=== PATIENT | female | born 1970 | race Asian ===

== ENCOUNTER 2021-06-22 10:03 | Outpatient (REF) | payer OTHER, SELFPAY ==
[2021-06-22 13:56] LABS: Creatinine Urine 262.95 mg/dL
[2021-06-22 13:58] LABS: Alanine Aminotransferase 16 U/L (0-31); Albumin Level 4.5 g/dL (3.5-5.0); Alkaline Phosphatase 58 U/L (39-117); Anion Gap 15 (12-20); Aspartate Amino Transferase 18 U/L (5-31); Bilirubin Total 0.7 mg/dL (0.0-1.0); Blood Urea Nitrogen 11 mg/dL (9-16); Calcium 9.9 mg/dL (8.4-10.2); Carbon Dioxide 24 mmol/L (22-29); Chloride 104 mmol/L (96-108); Cholesterol 172 mg/dL; Estimated Glomerular Filt Rate > 60; Glucose Fasting 146 mg/dL (60-99); HDL Cholesterol 37 mg/dL; LDL Cholesterol Calculated 114 mg/dl; Potassium 4.1 mmol/L (3.3-5.1); Sodium 139 mmol/L (135-145); Total Protein 7.5 g/dL (6.5-8.0); Triglycerides 109 mg/dL
[2021-06-22 14:02] LABS: Estimated Average Glucose 206 mg/dL; Hemoglobin A1c % 8.8 %
[2021-06-22 14:20] LABS: Vitamin D 25-OH Total 34.6 ng/mL (>30)
== END 2021-06-22 10:04 | disposition home or self-care (01) ==
LOC: HO.HMGCLDS 10:03
PROVIDERS: PCP Internal Medicine; Visit Provider Internal Medicine
DX: Z00.01 Encounter for general adult medical examination with abnormal findings (principal); E78.5 Hyperlipidemia, unspecified; I10 Essential (primary) hypertension; E11.9 Type 2 diabetes mellitus without complications; Z78.0 Asymptomatic menopausal state; Z79.4 Long term (current) use of insulin
CPT/HCPCS: 36415; 80053; 80061; 82043; 82306; 83036

== ENCOUNTER → 2021-08-14 12:44 | Outpatient (BNVA) | payer OTHER, SELFPAY | PROVIDERS: PCP Internal Medicine; Referring Provider Internal Medicine; Visit Provider Nurse Practitioner | DX: Z12.11 Encounter for screening for malignant neoplasm of colon (principal) | CPT/HCPCS: 99202 ==

== ENCOUNTER 2022-07-21 06:02 | Outpatient (REF) | payer BC, SELFPAY ==
[2022-07-21 11:48] LABS: Estimated Average Glucose 329 mg/dL; Hemoglobin A1c % 13.1 %
[2022-07-21 12:41] LABS: Alanine Aminotransferase 22 U/L (0-31); Anion Gap 17 (12-20); Aspartate Amino Transferase 17 U/L (5-31); Blood Urea Nitrogen 11 mg/dL (9-16); Calcium 9.5 mg/dL (8.4-10.2); Carbon Dioxide 22 mmol/L (22-29); Chloride 102 mmol/L (96-108); Cholesterol 173 mg/dL; Estimated Glomerular Filt Rate > 60; Glucose Fasting 299 mg/dL (60-99); HDL Cholesterol 53 mg/dL; LDL Cholesterol Calculated 105 mg/dl; Potassium 4.2 mmol/L (3.3-5.1); Sodium 137 mmol/L (135-145); Triglycerides 76 mg/dL
[2022-07-21 12:48] LABS: Creatinine Urine 89.33 mg/dL; Microalbum/Creatinine Ratio Ur 8.9 ug/mg cr
== END 2022-07-21 06:03 | disposition home or self-care (01) ==
LOC: HO.HMGCLDS 06:02
PROVIDERS: PCP Internal Medicine; Visit Provider Internal Medicine
DX: E78.5 Hyperlipidemia, unspecified (principal); E11.9 Type 2 diabetes mellitus without complications; I10 Essential (primary) hypertension; Z79.4 Long term (current) use of insulin
CPT/HCPCS: 36415; 80048; 80061; 82043; 83036; 84450; 84460

== ENCOUNTER 2022-12-13 10:02 | Outpatient (REF) | payer BC, SELFPAY ==
[2022-12-13 11:31] LABS: Estimated Average Glucose 171 mg/dL; Hemoglobin A1c % 7.6 %
[2022-12-13 12:23] LABS: Creatinine Urine 73.95 mg/dL; Microalbum/Creatinine Ratio Ur 21.6 ug/mg cr
[2022-12-13 12:43] LABS: Alanine Aminotransferase 19 U/L (0-31); Anion Gap 14 (12-20); Aspartate Amino Transferase 21 U/L (5-31); Blood Urea Nitrogen 15 mg/dL (9-16); Calcium 9.7 mg/dL (8.4-10.2); Carbon Dioxide 26 mmol/L (22-29); Chloride 105 mmol/L (96-108); Cholesterol 161 mg/dL; Estimated Glomerular Filt Rate > 60; Glucose Fasting 96 mg/dL (60-99); HDL Cholesterol 48 mg/dL; LDL Cholesterol Calculated 100 mg/dl; Potassium 5.1 mmol/L (3.3-5.1); Sodium 140 mmol/L (135-145); Triglycerides 69 mg/dL
[2022-12-13 12:45] LABS: Vitamin D 25-OH Total 32.7 ng/mL (>30)
== END 2022-12-13 10:03 | disposition home or self-care (01) ==
LOC: HO.HMGCLDS 10:02
PROVIDERS: PCP Internal Medicine; Visit Provider Internal Medicine
DX: E11.65 Type 2 diabetes mellitus with hyperglycemia (principal); E78.5 Hyperlipidemia, unspecified; N95.9 Unspecified menopausal and perimenopausal disorder; I10 Essential (primary) hypertension
CPT/HCPCS: 36415; 80048; 80061; 82043; 82306; 83036; 84450; 84460

== ENCOUNTER 2023-04-09 15:50 | Outpatient (AMB) | payer BC, SELFPAY ==
--- NOTE | 2023-04-09 16:24 | MHC.PC.OV ---
Vital Signs 04/09/23 16:26 Height 4 ft 11 in Weight 133 lb 8 oz BMI 27.0 BP 130/62 Blood Pressure Location Lt brachial Position Sitting Pulse 93 Pulse Source Pulse Oximeter Pulse Oximetry (%) 98 Oxygen Delivery Method Room Air Intake Visit Reasons: Annual PE/OK By Dr. Thomas Allergies No Known Allergies Allergy (Verified 04/09/23 16:40) Medication List - Last Reconciled 04/09/23 by Beatriz Thomas MD amlodipine 5 mg PO DAILY atorvastatin 20 mg PO DAILY blood sugar diagnostic (FreeStyle Lite Strips) Check fasting blood sugar twice a day before meals blood-glucose meter (FreeStyle Lite Meter kit) Check fasting glucose twice a day before meals empagliflozin (Jardiance) 25 mg PO QAM insulin glargine (Lantus Solostar U-100 Insulin) 24 units subcut QPM lisinopril 20 mg PO DAILY metformin 1,000 mg PO BID pen needle, diabetic Inject insulin once a day Tobacco use date assessed: 04/09/23 Dental Screening Dental Screen Date: 04/09/23 Did you have a dental visit in the last 12 months?: Yes Did you have a dental problem in the last 6 months where you did not have access to dental care?: No Was dental information given to patient?: No HPI HPI Comments History of Present Illness Details 52-year-old lady with diabetes mellitus currently on Jardiance 25 mg daily, metformin 1000 mg twice a day and Lantus 24 units at bedtime, has dyslipidemia on atorvastatin 20 mg daily and takes lisinopril 10 mg and amlodipine 5 mg daily for her hypertension, here today for physical exam. She has been feeling well except for intermittent episodes of right shoulder pain for which he takes Aleve tablets which has been helping. She is due for COVID vaccine and shingles vaccine is up-to-date with her pneumococcal vaccine Tdap and gets yearly flu shots. She states that she had as screening colonoscopy done January 2023 at [facility] with Dr. Bruno, findings were normal and to repeat again another colonoscopy in 10 years. She goes to [facility] for screening mammogram which she just did December this year, normal findings per patient. Hemoglobin A1c today is at 9.1% up from 7.6 in December 2022. Patient states that she has not been very compliant with her diet nor has she been getting Rx has but has been taking her medications as directed. Complains of excessive daytime sleepiness, has been told that she snores a lot, has difficulty initiating and maintaining sleep. [facility] Medical History (Updated 04/09/23 @ 17:01 by Beatriz Thomas MD) Diabetes mellitus with hyperglycemia, with long-term current use of insulin Dyslipidemia Essential hypertension Excessive daytime sleepiness Loud snoring Obesity (BMI 30.0-34.9) Surgical History Hx of cataract surgery Family History Father HTN (hypertension) Social History Housing: House Patient Tobacco Use Status: Never used Tobacco e-Cigarette/Vaping Use: Never Used Second Hand Smoke Exposure: No service: No Current occupational status: employed Cognitive needs: No Hearing needs: No Vision needs: No Questionnaire Thrive Questionnaire Date Thrive assessed: 10/02/22 AUDIT C Alcohol Use Questionnaire (AUDIT-C) 1. How often do you have a drink containing alcohol?: Never 3. How often do you have six or more drinks on one occasion?: Never Total Score: 0 Score Reviewed/Action Taken: Yes MARCK-7 AMB Questionnaire MARCK-7 Date MARCK - 7 assessed: 10/02/22 Source: Developed by Drs. Derick Ordaz, Carolynn Miller, Edwin Danielson and colleagues, with an educational jose manuel from [employer]. Review of Systems Const Reports as per HPI, Denies body aches, Denies fever(s), Denies frequent falls, Denies headache(s), Denies night sweats, Denies poor appetite, Denies weakness and Reports weight gain Eyes Details: Up-to-date with her diabetes retinopathy screening, goes to [facility] with negative retinopathy seen Denies change in vision ENT Reports Normal hearing present, Denies dysphagia, Denies vertigo, Denies headache(s), Denies hearing loss, Denies mouth pain and Denies tongue swelling Card Denies chest pain, Denies irregular heart rhythm, Denies lightheadedness and Denies dyspnea Resp Denies cough, Denies dyspnea and Denies wheezing GI Denies abdominal pain, Denies melena, Denies bloating, Denies dysphagia, Denies heartburn and Denies nausea Denies difficulty voiding, Reports nocturia, Denies dysuria, Denies urinary incontinence and Denies vaginal discharge Musc Details: Complaining of intermittent pain in right posterior shoulder, no history of any injury, takes an Aleve which has been helping Denies abnormal gait and Denies numbness Skin/Breast Denies breast pain, Denies breast mass, Denies pruritus, Denies lesions and Denies rash Neuro Reports Normal hearing present, Denies Abnormal speech present, Denies abnormal gait, Denies vertigo, Denies frequent falls, Denies headache(s), Denies focal weakness, Denies numbness, Denies Sensory deficit (Neuro) and Denies weakness Psych Reports no additional complaints Endo Denies polyphagia, Denies polydipsia and Denies polyuria Caio/Lymph Reports no additional complaints Aller/Immun Denies tongue swelling and Denies wheezing Physical exam (Primary Care) Vital Signs: Last Vital Signs Pulse 93 04/09/23 16:26 BP 142/62 H 04/09/23 16:26 Pulse Ox 98 04/09/23 16:26 Oxygen Delivery Method Room Air 04/09/23 16:26 BMI result Body Mass Index 27.0 BMI Assessment/Plan discussion: High BMI High, discussed plan: lifestyle, weight reduction, dietary and physical activity Tobacco/Smoking Status: Tobacco use Status Tobacco use date assessed 04/09/23 04/09/23 16:29 Patient Tobacco Use Status Never used Tobacco 04/09/23 16:26 e-Cigarette/Vaping Use Never Used 04/09/23 16:26 Thrive Assessment: Date of Thrive Assessment Date Thrive assessed 10/02/22 04/09/23 16:26 Const General: cooperative, no acute distress and alert Orientation/consciousness: patient oriented x3 Limitations: no limitations HENMT Head: Yes normocephalic and Yes atraumatic Ears: external ears normal General nose exam: Normal external nose present and No nasal discharge present Face and sinus: Yes face symmetric Mouth: Normal oral and palatal mucosa present, tongue normal, oropharynx normal and moist mucous membranes Eyes Conjunctivae: conjunctivae normal Sclerae: sclerae normal Pupils: Equal, round and reactive pupils present EOM: EOMs intact bilaterally Neck Neck: Yes full ROM and Yes no lymphadenopathy Thyroid: Thyroid normal Carotids: normal carotid upstroke Lymphatic: no lymphadenopathy noted Chest Breast/axilla palpation: normal palpation of the breasts Resp Effort & Inspection: normal respiratory effort and able to speak in complete sentences Auscultation: clear to auscultation bilaterally Cardio Rate: regular rate Rhythm: regular rhythm Heart sounds: S1 normal heart sound present and S2 normal heart sound present GI Palpation (GI): Soft to palpation Auscultation: normal bowel sounds General: Yes no CVA tenderness and Yes deferred Back/Spine/Pelvis Back: no CVA tenderness and No back tenderness Skin General skin exam: no rashes or lesions noted Neuro General: patient oriented x3, gait normal, moves all extremities, no focal motor deficits and CN's II-XI intact bilaterally Cranial nerves: Yes Equal, round and reactive pupils present and Yes Normal hearing present Cognition (Neuro): normal cognition Speech: No Abnormal speech present Gait exam (Neuro): Normal gait present Motor exam (neuro): 5/5 motor strength present throughout Sensory Exam: No Sensory deficit (Neuro) Extrem General: Yes normal to inspection, Yes full ROM, Yes no pedal edema and Yes normal gait Psych Appearance: grossly normal and well kempt Mental Status: mental status grossly normal Speech and movement: Normal speech and movement present Affect: normal affect Attitude: cooperative Thought process: Normal thought process present Thought content: Normal thought content present Results AMB Hemoglobin A1c AMB Hemoglobin A1c 9.1 % Last Edit by Davina Cochran CMA on 04/09/23 16:53 Assessment and Plan Assessment & Plan (1) Diabetes mellitus with hyperglycemia, with long-term current use of insulin: Code(s): E11.65 - Type 2 diabetes mellitus with hyperglycemia; Z79.4 - medical terminologist (current) use of insulin Plan: Recent lab results reviewed with patient, with sugar and hemoglobin A1c not at goal to 30 units subQ at bedtime. dosing metformin Jardiance at same dose, increase Lantus continue continue to check fasting blood sugar at home, maintain log and bring to next appointment for review. Reinforced diabetic diet and regular exercise with patient. Counseled regarding importance of yearly diabetes retinopathy screening currently up-to-date. Patient advised to inspect feet daily, for any signs of injury, callus or infection. Compliance with diet and regular exercise again stressed. Blood pressure goal is less than 130/80, goal LDL is less than 100 and goal hemoglobin A1c is less than 7% follow-up appointment made in---months, after fasting labs done. (2) Essential hypertension: Code(s): I10 - Essential (primary) hypertension Plan: Blood pressure at goal of less than 130/80. Continue with current medication. Reinforced importance of following a low sodium diet, getting regular exercise, and lowering stress levels. (3) Dyslipidemia: Code(s): E78.5 - Hyperlipidemia, unspecified Plan: Fasting lipid panel ordered today, continue with atorvastatin 20 mg daily in addition to adhering to low-cholesterol diet and getting regular exercise. (4) Annual visit for general adult medical examination with abnormal findings: Code(s): Z00.01 - Encounter for general adult medical examination with abnormal findings Plan: Will check appropriate labs. Recommended dental visit every 6 months and regular eye exams, yearly, up-to-date Take adequate calcium in diet and vitamin-D 3 at 2000 IU per cap once a day, in addition to weight-bearing exercises to help maintain good muscle tone and weight control. Instructed to do self-breast exam, and continue to get yearly mammogram, , patient had it already at with [facility], requested copy of results. Reminded to get her COVID booster and her Shingrix vaccination, up-to-date with her Tdap and pneumococcal vaccine . Will request copy of her latest colonoscopy results from Dr. Bruno at [facility], had it done January 2023 (5) Excessive daytime sleepiness: Code(s): G47.19 - Other hypersomnia Plan: Referred to [facility] for further evaluation management, advised weight loss through diet and exercise, lie on her side when sleeping (6) Loud snoring: Code(s): R06.83 - Snoring Plan: Referred to [facility] sleep lab for further evaluation management, advised weight loss through diet and exercise, lie on her side when sleeping Orders: Orders Alanine Aminotransferase Today E11.65 - Type 2 diabetes mellitus with hyperglycemia, E78.5 - Hyperlipidemia, unspecified, I10 - Essential (primary) hypertension, Z00.01 - Encounter for general adult medical examination with abnormal findings, Z79.4 - medical terminologist (current) use of insulin Aspartate Amino Transferase Today E11.65 - Type 2 diabetes mellitus with hyperglycemia, E78.5 - Hyperlipidemia, unspecified, I10 - Essential (primary) hypertension, Z00.01 - Encounter for general adult medical examination with abnormal findings, Z79.4 - skilled nursing (current) use of insulin Basic Metabolic Panel Fasting Today E11.65 - Type 2 diabetes mellitus with hyperglycemia, E78.5 - Hyperlipidemia, unspecified, I10 - Essential (primary) hypertension, Z00.01 - Encounter for general adult medical examination with abnormal findings, Z79.4 - medical terminologist (current) use of insulin Lipid Panel Today E11.65 - Type 2 diabetes mellitus with hyperglycemia, E78.5 - Hyperlipidemia, unspecified, I10 - Essential (primary) hypertension, Z00.01 - Encounter for general adult medical examination with abnormal findings, Z79.4 - medical terminologist (current) use of insulin Microalbumin, Random (w Creat) Today E11.65 - Type 2 diabetes mellitus with hyperglycemia, E78.5 - Hyperlipidemia, unspecified, I10 - Essential (primary) hypertension, Z00.01 - Encounter for general adult medical examination with abnormal findings, Z79.4 - medical terminologist (current) use of insulin AMB Hemoglobin A1c Today E11.65 - Type 2 diabetes mellitus with hyperglycemia, Z79.4 - skilled nursing (current) use of insulin Referrals Sleep Medicine Referral E66.9 - Obesity, unspecified, G47.19 - Other hypersomnia, R06.83 - Snoring Medications: Changed From insulin glargine (Lantus Solostar U-100 Insulin) 24 units subcut QPM E11.65 - Type 2 diabetes mellitus with hyperglycemia To insulin glargine (Lantus Solostar U-100 Insulin) 30 units subcut QPM E11.65 - Type 2 diabetes mellitus with hyperglycemia Coding Level of Care Code New Pt [facility] Care [id number]([id number]) Diagnoses Diabetes mellitus with hyperglycemia, with long-term current use of insulin E11.65; Z79.4 Essential hypertension I10 Dyslipidemia E78.5 Annual visit for general adult medical examination with abnormal findings Z00.01 Excessive daytime sleepiness G47.19 Loud snoring R06.83
[2023-04-09 16:26] VITALS: BP 130/62; PULSE 93; O2SAT 98; BMI 27.0
== END 2023-04-09 17:11 | disposition home or self-care (01) ==
PROVIDERS: Visit Provider Internal Medicine
DX: E11.65 Type 2 diabetes mellitus with hyperglycemia (principal); Z79.4 Long term (current) use of insulin; I10 Essential (primary) hypertension; E78.5 Hyperlipidemia, unspecified; Z00.01 Encounter for general adult medical examination with abnormal findings; G47.19 Other hypersomnia; R06.83 Snoring
CPT/HCPCS: 83036; 99386; 99396

== ENCOUNTER 2023-06-26 12:37 | Outpatient (AMB) | payer BC, SELFPAY ==
--- NOTE | 2023-06-26 12:46 | MHC.OFFVIS ---
Intake Vital Signs 06/26/23 12:47 Height 4 ft 11 in Weight 130 lb 4 oz BMI 26.3 BP 188/102 H Blood Pressure Location Lt brachial Position Sitting Respiration 17 Pulse 101 H Pulse Source Pulse Oximeter Pulse Oximetry (%) 98 Oxygen Delivery Method Room Air Intake Visit Reasons: I-CUSTOMER SUPPLY COORDINATOR: Snoring/Hypersomnia/Obesity - Confirmed Intake Note: Pt present to the office for new pt evaluation of snoring. She states shes been told she snores very loud. Allergies No Known Allergies Allergy (Verified 06/26/23 12:47) HPI HPI Comments History of Present Illness Details 52 y/o female patient with HTN and T2DM presents for new in-person visit for sleep consultation. Pt reports loud snoring, nocturia, and non refreshing sleep. Pt reports daytime tiredness with intermittent AM headache. Sleep questionnaire: Have you ever been diagnosed with a sleep disorder? No. Have you ever had a sleep study in the past? No. Have you ever been treated for a sleep disorder? No. Do you take medications for a sleep disorder? No. Do you snore? Yes, very loudly. Do you wake up gasping at night? No. Do you have episodes of apneas? No. If yes, are they witnessed? No. Do you have episodes of nocturnal chest pain or dyspnea? Yes, sometimes. Do you have difficulty initiating sleep? No. Do you have difficulty maintaining sleep? Yes, sometimes. Do you wake up tired? Yes. Do you have headaches upon awakening? Yes, sometimes. Do you wake up with dry mouth or throat? Yes. Do you have GERD? Yes. Do you have nocturia? Yes. Do you have nocturnal leg cramps? No. Do you have symptoms of restless legs? No. Do you act out your dreams? No. Sleep hygiene questionnaire: What is your usual sleep routine? Usual bedtime is at 9 pm; Usual wake up time is at 6:30 am. Do you take naps? No. Is your sleep environment cool, dark, and quiet? Yes. Do you exercise? No. Do you take caffeine or other stimulants? No. Do you use electronics in bed? Yes. What is your work schedule? 8-4 pm. Hypersomnolence questionnaire: Do you have daytime tiredness or fatigue? Yes. Do you easily fall asleep when inactive? No. Have you ever had episodes of sudden weakness? No. Have you ever had episodes of sudden weakness associated with strong emotions? No. [facility] Medical History (Updated 04/09/23 @ 17:01 by Beatriz Thomas MD) Obesity (BMI 30.0-34.9) Excessive daytime sleepiness Loud snoring Diabetes mellitus with hyperglycemia, with long-term current use of insulin Essential hypertension Dyslipidemia Surgical History Hx of cataract surgery Family History Father HTN (hypertension) Social History Housing: House Patient Tobacco Use Status: Never used Tobacco e-Cigarette/Vaping Use: Never Used Second Hand Smoke Exposure: No service: No Current occupational status: employed Cognitive needs: No Hearing needs: No Vision needs: No Review of Systems Const All systems reviewed & are unremarkable except as noted in HPI and below ENT Reports Normal hearing present Neuro Reports Normal hearing present Physical Exam Vital Signs: Last Vital Signs Pulse 101 H 06/26/23 12:47 Resp 17 06/26/23 12:47 BP 188/102 H 06/26/23 12:47 Pulse Ox 98 06/26/23 12:47 Oxygen Delivery Method Room Air 06/26/23 12:47 BMI result Body Mass Index 26.3 Const General: cooperative Nutritional Appearance: overweight Orientation/consciousness: patient oriented x3 Neck Neck: Yes full ROM and Yes supple Resp Effort & Inspection: normal respiratory effort and able to speak in complete sentences Neuro General: patient oriented x3, gait normal and moves all extremities Cranial nerves: Yes Bilaterally intact EOM present, Yes Normal facial strength present, Yes Midline tongue present, Yes Symmetric palate elevation present, Yes Normal hearing present, Yes Ability to bilaterally rotate head present and Yes Ability to bilaterally elevate shoulders present Cognition (Neuro): normal cognition Gait exam (Neuro): Normal gait present Motor exam (neuro): 5/5 motor strength present throughout, Pronator motor function not present and no tremor noted Psych Appearance: grossly normal Mental Status: mental status grossly normal Speech and movement: Normal speech and movement present Affect: normal affect Attitude: cooperative Assessment & Plan Assessment & Plan (1) Obesity (BMI 30.0-34.9): Code(s): E66.9 - Obesity, unspecified (2) Excessive daytime sleepiness: Code(s): G47.19 - Other hypersomnia (3) Loud snoring: Code(s): R06.83 - Snoring Plan Pt is advised to undergo home sleep study to assess for sleep apnea. Will f/u with pt after study to discuss results and appropriate treatment options. Sleep hygiene education provided. Pt to call with any worsening concerns or questions. Orders: Orders RT home sleep study 06/26/23 E11.65 - Type 2 diabetes mellitus with hyperglycemia, E66.9 - Obesity, unspecified, G47.19 - Other hypersomnia, I10 - Essential (primary) hypertension, R06.83 - Snoring, Z79.4 - FDC (current) use of insulin Coding Level of Care Code New Pt Level 3 (64777) Diagnoses Obesity (BMI 30.0-34.9) E66.9 Excessive daytime sleepiness G47.19 Loud snoring R06.83
[2023-06-26 12:47] VITALS: BP 188/102; PULSE 101; RESP 17; O2SAT 98; BMI 26.3
== END 2023-06-26 13:26 | disposition home or self-care (01) ==
PROVIDERS: PCP Internal Medicine; Visit Provider Nurse Practitioner Family
DX: E66.9 Obesity, unspecified (principal); G47.19 Other hypersomnia; R06.83 Snoring
CPT/HCPCS: 99203

== ENCOUNTER → 2023-06-26 12:37 | Outpatient (BNVA) | payer BC, SELFPAY | PROVIDERS: PCP Internal Medicine; Visit Provider Nurse Practitioner Family ==

== ENCOUNTER → 2023-10-01 15:05 | Outpatient (REF) | payer BC, SELFPAY | LOC: HO.SL 15:05 | PROVIDERS: PCP Internal Medicine; Visit Provider Nurse Practitioner Family | DX: G47.33 Obstructive sleep apnea (adult) (pediatric) (principal); R06.83 Snoring; E66.9 Obesity, unspecified; G47.19 Other hypersomnia | CPT/HCPCS: 95806 ==

== ENCOUNTER → 2023-10-01 15:25 | Outpatient (BNV) | payer BC, SELFPAY | PROVIDERS: PCP Internal Medicine; Visit Provider Psychiatry & Neurology Neurology | DX: G47.33 Obstructive sleep apnea (adult) (pediatric) (principal) | CPT/HCPCS: 95806 ==